=== PATIENT | female | born 1950 | race Caucasian/White ===

== ENCOUNTER 2020-05-22 12:38 | Outpatient (CLI) | payer MEDICARE, SELFPAY ==
--- NOTE | ~2020-05-22 | MM_ITS ---
EXAMINATION: MM screening zenia BI w ant HISTORY: Screening mammogram TECHNIQUE: Craniocaudal and mediolateral oblique 3-D tomosynthesis images were obtained and synthetic 2-D images were generated. CAD analysis was submitted and interpreted. COMPARISON: 03/14/2019 bilateral digital screening mammogram 02/25/2018 diagnostic right digital mammogram 02/21/2018, 05/20/2016 bilateral digital screening mammogram examinations BREAST PARENCHYMAL COMPOSITION: There are scattered areas of fibroglandular density. FINDINGS: There is no evidence of suspicious mass, calcification, or architectural distortion to sugg est malignancy in either breast. There has been no suspicious interval change. IMPRESSION: 1. No mammographic evidence of malignancy. 2. Recommend routine screening mammography in one year. Reviewed, dictated and finalized at location A.
== END 2020-05-22 12:39 | disposition home or self-care (01) ==
LOC: ANHIMG 12:42
PROVIDERS: PCP Family Medicine; Visit Provider Family Medicine
DX: Z12.31 Encounter for screening mammogram for malignant neoplasm of breast (principal)
CPT/HCPCS: 77063; 77067

== ENCOUNTER → 2020-10-08 15:36 | Outpatient (CLI) | payer MEDICARE, SELFPAY ==
--- NOTE | ~2020-10-08 | XR_ITS ---
XR knee RT 3V 10/08/2020 16:00 Indication: Right knee pain Procedure: 3 views right knee Comparison: No prior studies for comparison. Findings: Normal anatomic alignment. No fracture or traumatic malalignment. No significant joint effu colt. There is mild patellofemoral compartment degenerative change. Normal mineralization. No foreign bodies. Impression: 1: Mild patellofemoral compartment osteoarthritis. Reviewed, dictated and finalized at location A. SPECIALIST Impression: 1: Mild patellofemoral compartment osteoarthritis.
== END ==
PROVIDERS: PCP Family Medicine; Visit Provider Family Medicine
DX: M17.11 Unilateral primary osteoarthritis, right knee (principal)
CPT/HCPCS: 73562

== ENCOUNTER → 2020-12-28 08:53 | Outpatient (CLI) | payer MEDICARE, SELFPAY ==
--- NOTE | ~2020-12-28 | MR_ITS ---
EXAMINATION: MR knee RT wo con DATE: 12/28/2020 09:44 INDICATION: Right knee pain. TECHNIQUE: Magnetic resonance imaging (MRI) of the right knee was performed without intravenous contr ast. Sequences included axial PD-weighted FS FSE, coronal PD-weighted FSE and PD-weighted FS FSE, sag ittal PD-weighted FSE, and sagittal T2-weighted FS FSE. COMPARISON: Right knee radiographs 10/08/2020 FINDINGS: Medial compartment: Medial meniscus is normal. There is cartilage surface irregularity of tibial condyle and femoral cond yle. Lateral compartment: Lateral meniscus is normal. There is cartilage surface irregularity of femoral condyle. There is deep partial thickness cartilage loss of tibial condyle involving the medial articular surface. There is shallow partial-thickness cartilage loss of tibial condyle involving the central and posterior articu lar surface. Patellofemoral compartment: There is deep partial thickness cartilage loss of patellar lateral facet and shallow partial-thicknes s cartilage loss of patellar medial facet. There is deep partial thickness cartilage loss of lateral trochlea with mild subchondral edema-like marrow signal intensity. Ligaments and tendons: The anterior and posterior cruciate ligaments are normal. Medial collateral ligament is normal. There are changes of prior sprain of fibular collateral ligament characterized by increased signal intensi ty proximally. There is mild patellar tendinopathy. Fluid: There is a small knee joint effusion. There is a small John's cyst. IMPRESSION: 1. Moderate chondrosis of lateral and patellofemoral compartments and mild chondrosis of medial keri rtment. 2. Small knee joint effusion. 3. Small John's cyst. Reviewed, dictated and finalized at location A. IMPRESSION: 1. Moderate chondrosis of lateral and patellofemoral compartments and mild alberto drosis of medial compartment. 2. Small knee joint effusion. 3. Small John's cyst.
== END ==
PROVIDERS: PCP Family Medicine; Visit Provider Nurse Practitioner Family
DX: M25.461 Effusion, right knee (principal); M71.21 Synovial cyst of popliteal space [Baker], right knee
CPT/HCPCS: 73721

== ENCOUNTER 2021-06-13 14:20 | Outpatient (CLI) | payer MEDICARE, SELFPAY ==
--- NOTE | ~2021-06-13 | MM_ITS ---
EXAMINATION: MM screening zenia BI w ant HISTORY: Screening mammogram TECHNIQUE: Craniocaudal and mediolateral oblique 3-D tomosynthesis images were obtained and synthetic 2-D images were generated. CAD analysis was submitted and interpreted. COMPARISON: No prior mammogram is available for comparison at this institution. BREAST PARENCHYMAL COMPOSITION: There are scattered areas of fibroglandular density. FINDINGS: There is no evidence of suspicious mass, calcification, or architectural distortion to sugg est malignancy in either breast. There has been no suspicious interval change. IMPRESSION: 1. No mammographic evidence of malignancy. 2. Recommend routine screening mammography in one year. BI-RADS Category 1: Negative Reviewed, dictated and finalized at location A. 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
== END 2021-06-13 14:21 | disposition home or self-care (01) ==
LOC: ANHIMG 14:22
PROVIDERS: PCP Family Medicine; Visit Provider Family Medicine
DX: Z12.31 Encounter for screening mammogram for malignant neoplasm of breast (principal)
CPT/HCPCS: 77063; 77067

== ENCOUNTER 2021-11-27 15:26 | Outpatient (CLI) | payer MEDICARE, SELFPAY ==
--- NOTE | ~2021-11-27 | DEXA_ITS ---
Bone Density Report Name: CÉSAR SPENCER Age: 71 Sex: Female Ethnicity: White Date of : 1950 Indication: postmenopausal; screening for osteoporosis; height loss; Referring Provider: LARRY CRAWFORD Study: Bone densitometry was performed. Exam Date: November 27, 2021 Accession number: [id number] Bone Density: Region BMD T-score Z-score Classification AP Spine(L1-L4) 0.957 -0.8 1.5 Normal Femoral Neck (Left) 0.737 -1.0 1.0 Normal Total Hip (Left) 0.858 -0.7 1.0 Normal Femoral Neck (Right) 0.696 -1.4 0.6 Osteopenia Total Hip (Right) 0.886 -0.5 1.2 Normal Total Hip Mean 0.872 -0.6 1.1 Normal World Health Organization criteria for BMD impression classify patients as: Normal (T-score at or above -1.0), Osteopenia (T-score between -1.0 and -2.5), or Osteoporosis (T-score at or below -2.5). 10-year Fracture Risk(1): Major Osteoporotic Fracture 9.5% Hip Fracture 1.4% Reported Risk Factors: [place] (), Neck BMD=0.696, BMI=35.0 (1) FRAX(R) Version 3.08. Fracture probability calculated for an untreated patient. Fracture probability may be lower if the patient has received treatment. Previous Exams: Region Exam Age BMD T-score BMD Change BMD Change Date g/cm2 vs Baseline vs Previous AP Spine (L1-L4) 11/27/2021 71 0.957 -0.8 -0.042 (-4.2%) -0.020 (-2.1%) 02/21/2018 67 0.977 -0.6 -0.022 (-2.2%) -0.022 (-2.2%) 11/23/2014 64 0.998 -0.4 Total Hip(Left) 11/27/2021 71 0.858 -0.7 -0.164 (-16.0% -0.097 (-10.1% 02/21/2018 67 0.955 0.1 -0.067 (-6.5%) -0.067 (-6.5%) 11/23/2014 64 1.021 0.6 Total Hip(Right) 11/27/2021 71 0.886 -0.5 -0.120 (-11.9% -0.097 (-9.9%) 02/21/2018 67 0.983 0.3 -0.023 (-2.3%) -0.023 (-2.3%) 11/23/2014 64 1.007 0.5 *Denotes significance at 95% confidence level, LSC for AP Spine = 0.022 g/cm2, LSC for Total Hip = 0.027 g/cm2 Clinical Information Provided by Patient: Has used the following medications: Vitamin D Patient maximum height was 65 Menopause Age: 48 No regular weight bearing exercise Drinks caffeinated beverages Onset of menses at age 11 Number of children 2 Impression: The patient has low bone mass, based on the Right Femoral Neck T-score. The patient has an estimated ten-year risk of hip fracture of 1.4% and an estimated ten-year risk of major fracture of 9.5%, based on the WHO FRAX algorithm. The BMD for the Total Hip(Left)
== END 2021-11-27 15:27 | disposition home or self-care (01) ==
LOC: ANHIMG 15:27
PROVIDERS: PCP Family Medicine; Visit Provider Family Medicine
DX: Z78.0 Asymptomatic menopausal state (principal); M85.851 Other specified disorders of bone density and structure, right thigh
CPT/HCPCS: 77080

== ENCOUNTER 2022-08-24 14:46 | Outpatient (CLI) | payer MEDICARE, SELFPAY ==
--- NOTE | ~2022-08-24 | MM_ITS ---
EXAMINATION: MM screening zenia BI w ant HISTORY: Screening mammogram TECHNIQUE: Craniocaudal and mediolateral oblique 3-D tomosynthesis images were obtained and synthetic 2-D images were generated. CAD analysis was submitted and interpreted. COMPARISON: 06/13/2021, 05/22/2020, 03/14/2019 bilateral screening mammogram examinations BREAST PARENCHYMAL COMPOSITION: There are scattered areas of fibroglandular density. FINDINGS: Stable benign-appearing approximately 3 x 4.9 mm circumscribed opacity in the lower central right breast. There is no evidence of suspicious mass, calcification, or architectural distortion to suggest malignancy in either breast. There has been no suspicious interval change. IMPRESSION: 1. No mammographic evidence of malignancy. 2. Recommend routine screening mammography in one year. BI-RADS Category 2: Benign finding(s). Reviewed, dictated and finalized at location A. 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
== END 2022-08-24 14:47 | disposition home or self-care (01) ==
LOC: ANHIMG 14:49
PROVIDERS: PCP Family Medicine; Visit Provider Family Medicine
DX: Z12.31 Encounter for screening mammogram for malignant neoplasm of breast (principal)
CPT/HCPCS: 77063; 77067

== ENCOUNTER 2023-11-19 15:05 | Outpatient (CLI) | payer MEDICARE, SELFPAY ==
--- NOTE | ~2023-11-19 | MM_ITS ---
EXAMINATION: MM screening [facility] BI w ant HISTORY: Screening TECHNIQUE: Craniocaudal and mediolateral oblique 3-D tomosynthesis images were obtained and synthetic 2-D images were generated. CAD analysis was submitted and interpreted. COMPARISON: Comparison to multiple prior studies sequentially, with oldest reviewed study dated 02/21. BREAST PARENCHYMAL COMPOSITION: There are scattered areas of fibroglandular density. FINDINGS: Stable benign-appearing right breast mass located centrally, unchanged dating back to 06/13. There is no evidence of suspicious mass, calcification, or architectural distortion to suggest malignancy in either breast. There has been no suspicious interval change. IMPRESSION: 1. No mammographic evidence of malignancy. 2. Recommend routine screening mammography in one year. BI-RADS Category 2: Benign finding(s). Reviewed, dictated and finalized at location B.
== END 2023-11-19 15:06 | disposition home or self-care (01) ==
LOC: ANHIMG 15:34
PROVIDERS: PCP Family Medicine; Visit Provider Family Medicine
DX: Z12.31 Encounter for screening mammogram for malignant neoplasm of breast (principal)
CPT/HCPCS: 77063; 77067

== ENCOUNTER 2024-06-10 14:04 | Emergency (ER) | payer MEDICARE, SELFPAY ==
--- NOTE | ~2024-06-10 | CT_ITS ---
EXAMINATION: CT cervical spine wo con DATE: 06/10/2024 16:40 INDICATION: left sided neck pain TECHNIQUE: Computed tomography (CT) of the cervical spine was performed without intravenous contrast. Automated exposure control and iterative reconstruction technique were employed. The dose-length pro duct was 388.34 mGy-cm. COMPARISON: X-ray C-spine 06/27/2019. FINDINGS: Vertebral Body Alignment: Intact. Trace anterolisthesis at C4-5. Trace retrolisthesis at C5-6. Craniocervical and atlantoaxial alignment: Moderate degenerative change. Alignment intact. Osseous structures/fracture: No evidence of a lytic or blastic process in the visualized spine. No e vidence of acute fracture. Cervical soft tissues: The paraspinal soft tissues planes are maintained. Biapical pleural scarring. Degenerative changes: Degenerative changes, without severe neural foraminal or central canal narrowin g. IMPRESSION: No acute fracture or traumatic malalignment in the cervical spine. Reviewed, dictated and finalized at location K. 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
[2024-06-10 14:08] VITALS: BP 176/56; PULSE 73; RESP 18; TEMP 36.2; O2SAT 99
--- NOTE | 2024-06-10 15:03 | ED.NECK ---
HPI - Neck Pain/Injury General Chief Complaint: Neck Pain/Injury Stated Complaint: L. sided neck pain Time Seen by Provider: 06/10/24 14:11 Source: patient Mode of arrival: ambulatory Limitations: no limitations History of Present Illness HPI Narrative: This is a 73 year old female that presents to the ER for neck pain. Ongoing since yesterday. Pain is on the left side of her neck. She feels stiff. Worse with range of motion. She took an Aleve with little relief. Denies fever, numbness or weakness. Related Data Home Medications Medication Instructions Recorded Confirmed meloxicam 15 mg tablet 15 mg PO DAILY 09/01/22 03/27/24 Allergies Allergy/AdvReac Type Severity Reaction Status Date / Time No Known Allergies Allergy Verified 06/10/24 14:11 Review of Systems Review of Systems: CONSTITUTIONAL: Denies fever MUSCULOSKELETAL: Reports joint pain, and myalgia. NEUROLOGIC: Denies numbness, or weakness. All systems reviewed & are unremarkable except as noted in HPI and below PMFSH Past Medical History Medical History Adult hypothyroidism Arthritis Benign hypertension without CHF Claustrophobia Diarrhea Hair loss High cholesterol Hypertension Iliotibial band tendonitis Knee pain, right anterior Mixed hyperlipidemia OAB (overactive bladder) Obesity (BMI 30-39.9) Osteoporosis Right knee DJD Trochanteric bursitis Urinary frequency Wears glasses Surgical History Surgical History History of cholecystectomy History of foot surgery 1980s Family History Family History Mother Family history of lung cancer Patient's mother is Family history of diabetes mellitus in first degree relative Sibling Family history of lupus erythematosus Other Diabetes mellitus Family history of malignant neoplasm of stomach High cholesterol Hypertension Social History Social History Social History: Smoking packs per day: 1 Smoking cigarettes per day: 20.0 Years smoked: 20 Smoking pack-years: 20.00 Smoking status: Former smoker Tobacco type: cigarettes Second hand tobacco smoke exposure: No Smoking end date: 10/01/91 Alcohol intake: current Alcohol use details: rarely Substance use: never Substance use type: does not use Do You Feel Safe in your Home?: Yes Lack of Transportation: No Lack of Food: Never True Current Housing: I Have Housing Concerned About Future Housing: No Difficulty Paying Gas/Electric Bills: No Difficulty Paying for Meds: No Currently Unemployed: YES Education: Decline to Answer Difficulty w/ Childcare or Family Care: No Living arrangements: with family Occupation/Education: retired Gender identity (if verbalized by the patient): Female Sexual Orientation (if Verbalized by the Patient): Straight or Heterosexual Exam Narrative: GENERAL: Well-appearing, well-nourished, and in no acute distress. HEAD: Normocephalic, atraumatic. EYES: PERRLA and EOMI. ENT: Nares clear, no rhinorrhea or epistaxis. Mucous membranes moist. Oropharynx without tonsillar hypertrophy exudate or other lesions. Bilateral TMs pearly esquivel non-bulging NECK: Supple. No adenopathy or masses. Tender to palpation of left trapezius musculature CHEST: Clear to auscultation. No respiratory distress. No wheezes rales or rhonchi HEART: Regular rate and rhythm. No murmur heard. Normal peripheral pulses. EXTREMITIES: Normal range of motion. No edema. strength equal in bilateral upper extremities (5/5) SKIN: Warm, dry, no rash. NEURO: No focal deficits. Alert and oriented x3. Cranial nerves 2-12 grossly intact PSYCH: Normal mood and affect Course Course Emergency Course: Patient updated on workup and agrees with plan of care Vital Signs Vital signs: Vital Signs Temperature 97.2 F L 06/10/24 14:08 Pulse Rate 73 06/10/24 14:08 Respiratory Rate 18 06/10/24 14:08 Blood Pressure 176/56 H 06/10/24 14:08 Pulse Oximetry 99 06/10/24 14:08 Oxygen Delivery Room Air 06/10/24 14:08 Temperature 97.2 F L 06/10/24 14:08 Pulse Rate 60 06/10/24 16:00 Respiratory Rate 18 06/10/24 16:00 Blood Pressure 151/67 H 06/10/24 16:00 Pulse Oximetry 94 06/10/24 16:00 Oxygen Delivery Room Air 06/10/24 14:08 MDM - Neck Pain/Injury MDM Narrative Medical decision making narrative: Patient presents to the emergency department for neck pain ongoing since yesterday. No recent injuries or trauma. She is neurologically intact. Tender to palpation of left trapezius musculature. She is afebrile and nontoxic appearing. Her vitals are stable. CT cervical spine is without acute findings. Patient updated on her workup and agrees with plan of care. Reports improvement with muscle relaxer and Tylenol. Will be continued on Tylenol, anti-inflammatories and given prescription for muscle relaxer. She is to follow up with primary provider. She was given warnings to return to the ER Differential Diagnosis Differential diagnosis: Likely disc disorder of cervical region, cervical radiculopathy, strain of neck muscle and other (osteoarthritis) Imaging Data Radiologist's impression: ITS Impressions Cervical Spine CT 06/10/24 17:02 IMPRESSION: No acute fracture or traumatic malalignment in the cervical spine. Critical Care Time Critical Care Time Critical Care Time: No Discharge Plan Discharge Clinical Impression: Acute neck pain Patient Disposition: Home, Self-Care Condition: Improved Instructions: Neck Pain (ED) Additional Instructions: Return to the ER if you experience fever, weakness, numbness, or any other symptoms that are concerning to you Rest, use ice/heat, take anti-inflammatories (Aleve, Ibuprofen, Naproxen, etc) or Tylenol as needed for pain as well as muscle relaxer (Flexeril) as needed for pain. Muscle relaxers can make you drowsy, do not drive if you take this Follow up with your primary care doctor Prescriptions: New cyclobenzaprine 10 mg tablet 10 mg PO TID PRN (Reason: muscle spasm) Qty: 10 0RF No Action meloxicam 15 mg tablet 15 mg PO DAILY ondansetron 4 mg tablet,disintegrating 4 mg PO Q8H PRN (Reason: nausea and vomiting) Qty: 30 0RF azelastine 137 mcg (0.1 %) aerosol,spray 137 mcg intranasal Q12H Qty: 30 0RF Rx Instructions: administer into each nostril atorvastatin 10 mg tablet See Rx Instructions .ROUTE .COMPLEX Qty: 100 1RF Dose Instruction: TAKE 1 TABLET BY MOUTH DAILY Rx Instructions: TAKE 1 TABLET BY MOUTH DAILY losartan-hydrochlorothiazide 100-12.5 mg tablet See Rx Instructions .ROUTE .COMPLEX Qty: 100 1RF Dose Instruction: TAKE 1 TABLET BY MOUTH DAILY Rx Instructions: TAKE 1 TABLET BY MOUTH DAILY buspirone 5 mg tablet See Rx Instructions .ROUTE .COMPLEX Qty: 360 1RF Dose Instruction: TAKE 1 TABLET BY MOUTH THREE TIMES DAILY Rx Instructions: TAKE 1 TABLET BY MOUTH THREE TIMES DAILY levothyroxine 100 mcg tablet See Rx Instructions .ROUTE .COMPLEX Qty: 102 1RF Dose Instruction: TAKE 1 TABLET BY MOUTH DAILY, AND 1.5 EACH WEDNESDAY Rx Instructions: TAKE 1 TABLET BY MOUTH DAILY, AND 1.5 EACH WEDNESDAY omeprazole 40 mg capsule,delayed release(DR/EC) See Rx Instructions .ROUTE .COMPLEX Qty: 90 1RF Dose Instruction: TAKE 1 CAPSULE BY MOUTH DAILY Rx Instructions: TAKE 1 CAPSULE BY MOUTH DAILY cilostazol 100 mg tablet See Rx Instructions .ROUTE .COMPLEX Qty: 180 1RF Dose Instruction: TAKE 1 TABLET BY MOUTH TWICE DAILY Rx Instructions: TAKE 1 TABLET BY MOUTH TWICE DAILY Follow-up/Referrals: Zehra Howard MD [Primary Care Provider] -
[2024-06-10 15:04] VITALS: BP 166/75; PULSE 65; RESP 18; O2SAT 96
[2024-06-10] MEDS: ACETAMINOPHEN 500 MG TABLET 1000 MG PO (15:08)
[2024-06-10] MEDS: diazePAM INJ (*CRX) 10 MG/2 ML SYRINGE 2.5 MG IM ×2 (15:08→16:28)
[2024-06-10 15:30] VITALS: BP 138/79; PULSE 68; RESP 19; O2SAT 95
[2024-06-10 16:00] VITALS: BP 151/67; PULSE 60; RESP 18; O2SAT 94
--- NOTE | 2024-06-10 16:31 | PC.NURSE ---
patient to cat scan
[2024-06-10 17:34] VITALS: BP 151/67; PULSE 80; RESP 16; TEMP 36.6; O2SAT 96
== END 2024-06-10 17:35 | disposition home or self-care (01) ==
PROVIDERS: Emergency Provider Physician Assistant; PCP Family Medicine
DX: M54.2 Cervicalgia (principal); I10 Essential (primary) hypertension; E03.9 Hypothyroidism, unspecified; E78.2 Mixed hyperlipidemia; E66.9 Obesity, unspecified; Z68.32 Body mass index [BMI] 32.0-32.9, adult; N32.81 Overactive bladder; M81.0 Age-related osteoporosis without current pathological fracture; M17.11 Unilateral primary osteoarthritis, right knee; Z90.49 Acquired absence of other specified parts of digestive tract; Z87.891 Personal history of nicotine dependence; Z79.899 Other long term (current) drug therapy
CPT/HCPCS: 72125; 96372; 99284; A9270; J3360

== ENCOUNTER 2025-01-29 14:49 | Outpatient (CLI) | payer MEDICARE, SELFPAY ==
--- NOTE | ~2025-01-29 | MM_ITS ---
EXAMINATION: MM screening zenia BI w ant HISTORY: Screening mammogram TECHNIQUE: Craniocaudal and mediolateral oblique 3-D tomosynthesis images were obtained and synthetic 2-D images were generated. CAD analysis was submitted and interpreted. COMPARISON: 11/19/2023, 08/24/2022, 06/13/2021 BREAST PARENCHYMAL COMPOSITION:Not Dense. The breasts are almost entirely fatty FINDINGS: No suspicious mass, calcification, or architectural distortion are identified in either estiven ast to suggest malignancy. There has been no suspicious interval change. IMPRESSION: No mammographic evidence of malignancy. Recommend routine screening mammography in one year. BI-RADS Category 1: Negative Reviewed, dictated and finalized at location .
--- OUTSIDE RECORDS SUMMARY | 2025-01-29 14:58 | XMS_ITS | Clinical Summary ---
Author Organization [facility] [employer] Address [address] [place] [address] Care Team Providers Care Clinical Application Manager Name Role Phone Zehra Howard MD Primary Care Provider + Source Comments [facility],non-owned Affiliates and Associated Physician Practices is amultiple site organization consisting of ambulatory clinics and hospital sitesin [place], [place], [place] and [place]. This disclosure is being madepursuant to the Care Everywhere program and may not contain all information available regarding this patient. Last updated 18.[facility] [employer] Allergies Active Allergy Reactions Criticality Noted Date Comments Codeine Unknown 02/23/2022 Medications * Be aware that medications may not be up to date on this document. Always verify current medications with the patient. levothyroxine (SYNTHROID) 100 MCG tablet Take 100 mcg by mouth once daily 11/26/19 22 Active cilostazol (PLETAL) 100 MG tablet 02/21/20 Active latanoprost (XALATAN) 0.005 % ophthalmic solution INSTILL 1 DROP INTO BOTH EYES EVERY NIGHT AT BEDTIME DIRECTED 11/23/19 Active omeprazole (PRILOSEC) 40 MG capsule 02/21/20 Active Biotin 1000 MCG Acti ve Cholecalciferol (Vitamin D3) 250 MCG (03737 UT) TABS Active calcium carbonate (Caltrate) 600 MG tablet Take 1 tablet by mouth daily with food Active Multiple Vitamins-Minerals (OCUVITE EYE + MULTI PO) Active nabumetone (RELAFEN) 750 MG tablet Take 1 (one) tablet by mouth 2 times daily 60 tablet 5 02/24/20 Active Additional Information Patient not taking.Reported on 04/07/2022 atorvastatin (Lipitor) 10 MG tablet Take 10 mg by mouth Active meloxicam (Mobic) 15 MG tablet TAKE 1 TABLET BY MOUTH EVERY DAY 30 tablet 5 08/30/19 24 Active busPIRone (Buspar) 5 MG tablet Take 1 (one) tablet by mouth 3 times daily 01/06/20 24 Active losartan-hydroCHLO ROthiazide (Hyzaar) 100-12.5 MG tablet Take 1 (one) tablet by mouth once daily 12/31/19 24 Active meloxicam (Mobic) 15 MG tabletIndications: Primary osteoarthritis of both knees Take 1 (one) tablet by mouth once daily 30 tablet 5 03/06/20 24 Active Active Problems Problem Noted Date Diagnosed Date Patellar tendinitis of both knees 02/25/2022 Social History Tobacco Use Types Packs/Day Years Used Date Smoking Tobacco: Never Assessed PHQ-2 Answer Date Recorded Patient Health Questionnaire-2 Score 0 03/06/2024 Comments Unknown Sex and Gender Information Value Date Recorded Sex Assigned at Not on file Legal Sex Female 11:31 AM CDT Gender Identity Not on file Sexual Orientation Not on file Last Filed Vital Signs Vital Sign Reading Time Taken Comments Blood Pressure - - Pulse - - Temperature - - Respiratory Rate - - Oxygen Saturation - - Inhaled Oxygen Concentration - - Weight 92.1 kg (203 lb) 02/23/2022 2:58 PM CDT Height 165.1 cm (5' 5) 02/23/2022 2:58 PM CDT Body Mass Index 33.78 02/23/2022 2:58 PM CDT Plan of Treatment Health Maintenance Due Date Last Done Comments BONE DENSITY TESTING 1950 MEDICARE AWV 12 MONTHS 1950 HEPATITIS C SCREENING 11/07/1966 DTAP/TDAP/TD VACCINES (1 - Tdap) 11/12/1967 PNEUMOCOCCAL VACCINE 50+ (1 of 1 - PCV) 1998 ZOSTER VACCINE (1 of 2) 1998 Respiratory Syncytial Virus (RSV) Vaccine Pt: or over 60 yrs (1 - 1-dose 75+ series) 11/12/2023 COVID-19 VACCINE ( - 2023-2 5 season) 2024 DEPRESSION SCREENING 08/02/2024 03/06/2024 INFLUENZA VACCINE (Season Ended) 2025 HEPATITIS B VACCINE Aged Out No longe r eligible based on patient's age to complete this topic HIB VACCINE Aged Out No longer eligi ble based on patient's age to complete this topic HPV VACCINE Aged Out No longer eligi ble based on patient's age to complete this topic MENINGOCOCCAL (Group B) VACC INE SHARED DECISION-MAKING Aged Out No longer eligibl e based on patient's age to complete this topic MENINGOCOCCAL GROUPS A/C/Y/W VACCINE Aged Out No longer eligible b ased on patient's age to complete this topic Insurance MEDICARE AET Care Teams Clinical Application Manager Relationship Specialty Start Date End Date Zehra Howard MD [address] [place] [address] PCP - General Family Medicine 02/23/22
== END 2025-01-29 14:50 | disposition home or self-care (01) ==
LOC: ANHIMG 14:50
PROVIDERS: PCP Family Medicine; Visit Provider Family Medicine
DX: Z12.31 Encounter for screening mammogram for malignant neoplasm of breast (principal)
CPT/HCPCS: 77063; 77067

== ENCOUNTER 2025-06-08 12:52 | Outpatient (CLI) | payer MEDICARE, SELFPAY ==
--- NOTE | ~2025-06-08 | DEXA_ITS ---
Bone Density Report Name: CÉSAR SPENCER Age: 74 Sex: Female Ethnicity: White Date of : 1950 Indication: postmenopausal; screening for osteoporosis; height loss; Referring Provider: MISAEL SAEZ Study: Bone densitometry was performed. Exam Date: June 08, 2025 Accession number: [id number] Bone Density: Region BMD T-score Z-score Classification AP Spine(L1-L4) 0.970 -0.7 1.8 Normal Femoral Neck (Left) 0.719 -1.2 1.0 Osteopenia Total Hip (Left) 0.971 0.2 2.1 Normal Femoral Neck (Right) 0.705 -1.3 0.9 Osteopenia Total Hip (Right) 0.955 0.1 2.0 Normal Total Hip Mean 0.963 0.2 2.1 Normal World Health Organization criteria for BMD impression classify patients as: Normal (T-score at or above -1.0), Osteopenia (T-score between -1.0 and -2.5), or Osteoporosis (T-score at or below -2.5). 10-year Fracture Risk(1): Major Osteoporotic Fracture 11% Hip Fracture 2.0% Reported Risk Factors: [place] (), Neck BMD=0.705, BMI=34.0 (1) FRAX(R) Version 3.08. Fracture probability calculated for an untreated patient. Fracture probability may be lower if the patient has received treatment. Previous Exams: Region Exam Age BMD T-score BMD Change BMD Change Date g/cm2 vs Baseline vs Previous AP Spine (L1-L4) 06/08/2025 74 0.970 -0.7 -0.028 (-2.8%) 0.014 (1.4%) 11/27/2021 71 0.957 -0.8 -0.042 (-4.2%) -0.020 (-2.1%) 02/21/2018 67 0.977 -0.6 -0.022 (-2.2%) -0.022 (-2.2%) 11/23/2014 64 0.998 -0.4 Total Hip(Left) 06/08/2025 74 0.971 0.2 -0.050 (-4.9%) 0.113 (13.2%)* 11/27/2021 71 0.858 -0.7 -0.164 (-16.0% -0.097 (-10.1% 02/21/2018 67 0.955 0.1 -0.067 (-6.5%) -0.067 (-6.5%) 11/23/2014 64 1.021 0.6 Total Hip(Right) 06/08/2025 74 0.955 0.1 -0.052 (-5.2%) 0.068 (7.7%)* 11/27/2021 71 0.886 -0.5 -0.120 (-11.9% -0.097 (-9.9%) 02/21/2018 67 0.983 0.3 -0.023 (-2.3%) -0.023 (-2.3%) 11/23/2014 64 1.007 0.5 *Denotes significance at 95% confidence level, LSC for AP Spine = 0.022 g/cm2, LSC for Total Hip = 0.027 g/cm2 Clinical Information Provided by Patient: Has used the following medications: Vitamin D, Calcium Patient maximum height was 65 Menopause Age: 48 Drinks caffeinated beverages Onset of menses at age 10 Number of children 2 Impression: The patient has low bone mass, based on the Right Femoral Neck T-score. The patient has an estimated ten-year risk of hip fracture of 2% and an estimated ten-year risk of major fracture of 11%, based on the WHO FRAX algorithm. No significant bone loss was observed. Discussion: BONE DENSITY IS LOW AT ONE OR MORE SKELETAL SITES. This patient's lowest T-score is low at one or more skeletal sites. It meets the World Health Organization's (WHO) criteria for ?low bone mass? (T-score between -1.0 and -2.5). The patient's 10-year risk of fracture as calculated by FRAX is less than the threshold where pharmacological therapy is recommended by the National Osteoporosis Foundation (NOF). However, all treatment decisions require clinical judgment and consideration of individual patient factors, including patient preferences, comorbidities, previous drug use, risk factors not captured in the FRAX model (e.g., frailty, falls, vitamin D deficiency, increased bone turnover, interval significant decline in bone density) and possible under or overestimation of fracture risk by FRAX. The patient should follow a healthful lifestyle (good nutrition with adequate calcium and vitamin D, and appropriate weight-bearing exercise). Follow-Up: Consider repeating this study in 2 to 3 years to reassess this patient's status, or sooner if there is some new clinical indication. Reported by: NOEMI on 06/08/2025 1:32:00 PM. Reviewed, dictated and finalized at location A.
--- OUTSIDE RECORDS SUMMARY | 2025-06-08 12:54 | XMS_ITS | Clinical Summary ---
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 Active losartan-hydroch lorothiazide (HYZAAR) 50-12.5 mg Oral tablet Take 1 Tab by mouth daily. Active omeprazole (PRILOSEC) 20 mg Oral CpDR Take 20 mg by mouth daily. Active atorvastatin (LIPITOR) 10 mg Oral tablet Take 10 mg by mouth Daily LATE. Active METFORMIN HCL (METFORMIN ORAL) Take by mouth. Active Active Problems Patient Care Coordination No te Formatting of this note migh t be different from the original. Development Director Dr. Hilario Mayberry Problem Noted Date Diagnosed Date Family history of sudden 09/23/2011 Overview (09/23/2011): Sister Nneka at 53yo in her sleep, with nausea the night before. She had Lupus but no prior heart problem known. Obesity, unspecified 09/23/2011 Essential hypertension, benign Hyperlipidemia Resolved Problems Problem Noted Date Diagnosed Date Resolved Date Family history of sudden cardiac 09/23/2011 09/23/2011 Family History Medical History Relation Name Comments Cancer Maternal Aunt brain cancer Cancer Maternal Grandfather bone cancer Lung Cancer Mother SLE Sister Nneka Sudden Sister Nneka in her sle ep after an upset stomach at age 53yo Relation Name Status Comments Maternal Aunt Maternal Grandfather Mother Sister Nneka Social History Tobacco Use Types Packs/Day Years Used Date Smoking Tobacco: Former Cigarettes 1.5 20 0 09/23/1971 - 09/23/1991 Alcohol Use Standard Drinks/Week Comments Not Asked 0 (1 standard drink = 0.6 oz pur e alcohol) Comments Unknown Sex and Gender Information Value Date Recorded Sex Assigned at Not on file Legal Sex Female 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 Gender Identity Not on file Sexual Orientation Not on file Last Filed Vital Signs Vital Sign Reading Time Taken Comments Blood Pressure 122/86 04/15/2012 10:11 AM CDT Pulse 58 09/23/2011 10:32 AM SLAB GRINDER Temperature - - Respiratory Rate - - Oxygen Saturation - - Inhaled Oxygen Concentration - - Weight 102.5 kg (226 lb) 04/15/2012 10:11 AM CDT Height 165.1 cm (5' 5) 04/15/2012 10:11 AM CDT Body Mass Index 37.61 04/15/2012 10:11 AM CDT Plan of Treatment Health Maintenance Due Date Last Done Comments DTAP/TDAP/TD VACCINES (1 - Tdap) 11/12/1967 PNEUMOCOCCAL VACCINE 50+ YEARS (1 of 1 - PCV) 11/11/18 99 ZOSTER VACCINE (1 of 2) 1998 OSTEOPOROSIS SCREENING 2013 RSV VACCINE (60+ or ) (1 - 1-dose 75+ series) 11/12/2023 INFLUENZA VACCINE (#1) 2025 Insurance [facility] [employer] PPO [id number] Care Teams Finished Garment Inspector Relationship Specialty Start Date End Date Zehra Howard MD PCP - General Family Practice 09/22/11
--- OUTSIDE RECORDS SUMMARY | 2025-06-08 12:54 | XMS_ITS | Clinical Summary ---
Author Organization [facility] Address [address] [place] [address] Care Team Providers Care Venetian Blind Installer Name Role Phone Zehra Howard MD Primary Care Provider + Source Comments [facility],non-owned Affiliates and Associated Physician Practices is amultiple site organization consisting of ambulatory clinics and hospital sitesin [place], [place], [place] and [place]. This disclosure is being madepursuant to the Care Everywhere program and may not contain all information available regarding this patient. Last updated 18.[facility] Allergies Active Allergy Reactions Criticality Noted Date Comments Codeine Unknown 02/23/2022 Medications * Be aware that medications may not be up to date on this document. Alwaysverify current medications with the patient. levothyroxine (SYNTHROID) 100 MCG tablet Take 100 mcg by mouth once daily 11/26/19 Active cilostazol (PLETAL) 100 MG tablet 02/21/20 Active latanoprost (XALATAN) 0.005 % ophthalmic solution INSTILL 1 DROP INTO BOTH EYES EVERY NIGHT AT BEDTIME DIRECTED 11/23/19 Active omeprazole (PRILOSEC) 40 MG capsule 02/21/20 Active Biotin 1000 MCG Acti ve Cholecalciferol (Vitamin D3) 250 MCG (34917 UT) TABS Active calcium carbonate (Caltrate) 600 [...] yrs (1 - 1-dose 75+ series) 11/12/2023 DEPRESSION SCREENING 08/02/2024 03/06/2024 COVID-19 VACCINE ( - 2023-2 5 season) 2025 INFLUENZA VACCINE (#1) 2025 HEPATITIS B VACCINE Aged Out No [...] this topic Insurance MEDICARE AET Care Teams Venetian Blind Installer Relationship Specialty Start Date End Date Zehra Howard MD [address] [place] [address] PCP - General Family Medicine 02/23/22
== END 2025-06-08 12:53 | disposition home or self-care (01) ==
LOC: ANHFOHIMG 12:53
PROVIDERS: PCP Family Medicine; Visit Provider Physician Assistant Medical
DX: M85.89 Other specified disorders of bone density and structure, multiple sites (principal); Z78.0 Asymptomatic menopausal state
CPT/HCPCS: 77080